=== PATIENT | male | born 1955 | race Caucasian/White ===

== ENCOUNTER 2017-06-10 14:38 | Inpatient (IN) | payer OTHER, BC ==
[~2017-06-10] VITALS: Ht 177.8 cm; Wt 78.9 kg
[2017-06-10 15:01] LABS: BASOPHIL (%) 0.6 % (0-1); EOSINOPHIL (%) 2.5 % (0-5); EOSINOPHIL COUNT 0.1 K/uL (0-0.3); HEMATOCRIT 31.1 % (38.0-50.0); HEMOGLOBIN 10.3 G/DL (12.5-16.6); IMMATURE GRANULOCYTE (%) 0.8 % (0.0-0.7); LYMPHOCYTE (%) 23.5 % (15-42); LYMPHOCYTE COUNT 1.1 K/uL (1.0-2.8); MCH 31.7 PG (29.0-34.0); MCHC 33.1 G/DL (30.0-36.0); MCV 95.7 FL (86-99); MONOCYTE (%) 8.1 % (3-12); MONOCYTE COUNT 0.4 K/uL (0-0.8); NEUTROPHIL (%) 64.5 % (45-76); PLATELET COUNT 293 K/uL (156-360); RBC DIS.WIDTH-CV 12.4 % (11.8-14.6); RBC DIS.WIDTH-SD 42.2 % (39-53); RED BLOOD COUNT 3.25 M/uL (4.00-5.50); WHITE BLOOD COUNT 4.7 K/uL (4.1-10.2)
[2017-06-10 15:13] LABS: AMYLASE 40 IU/L (1-118); CHLORIDE 108 mEq/L (99-109); SODIUM 140 mEq/L (136-147)
[2017-06-10 15:15] LABS: GLUCOSE 171 mg/dL (70-99)
[2017-06-10 15:18] LABS: SERUM ETHYL ALCOHOL < 10 mg/dL
[2017-06-10 15:19] LABS: CREATININE 1.2 mg/dL (0.6-1.3); GFR ESTIMATE (CALCULATED) > 59 mL/min/ (58.99-99999); UREA NITROGEN (BUN) 42 mg/dL (9-23)
[2017-06-10 15:21] LABS: LIPASE 13 U/L (1.0-51.0)
[2017-06-10] MEDS ORDERED: NOVOLOG PE100 UNITS/ SC (16:13)
[2017-06-10] MEDS ORDERED: LANTUS 3 M100 UNITS1 SC (16:13)
[2017-06-10] MEDS ORDERED: CELEXA10 MG PO (16:48)
[2017-06-10 17:16] LABS: TROP-I INTERPRETATION NEGATIVE; TROPONIN-I < 0.01 ng/mL (0.0-0.30)
[2017-06-10] MEDS ORDERED: PRESERVISION A1 EAC2 PO (19:51)
[2017-06-10] MEDS ORDERED: THERALITH XR T1 EACH PO (19:51)
[2017-06-10] MEDS ORDERED: ALLOPURINOL300 MG PO (19:52)
[2017-06-10] MEDS ORDERED: LIPITOR40 MG PO (19:52)
[2017-06-10] MEDS ORDERED: BENICAR40 MG PO (19:52)
[2017-06-10] MEDS ORDERED: ADULT ASPIRIN R81 MG PO (19:52)
[2017-06-10 20:40] LABS: TROP-I INTERPRETATION NEGATIVE; TROPONIN-I < 0.01 ng/mL (0.0-0.30)
[2017-06-11] VITALS (25 sets, daily range): BP systolic 132–178; BP diastolic 53–76
[2017-06-11 05:01] LABS: HEMATOCRIT 29.5 % (38.0-50.0); HEMOGLOBIN 9.6 G/DL (12.5-16.6); MCH 31.3 PG (29.0-34.0); MCHC 32.5 G/DL (30.0-36.0); MCV 96.1 FL (86-99); PLATELET COUNT 247 K/uL (156-360); RBC DIS.WIDTH-CV 12.5 % (11.8-14.6); RBC DIS.WIDTH-SD 42.6 % (39-53); RED BLOOD COUNT 3.07 M/uL (4.00-5.50); WHITE BLOOD COUNT 11.2 K/uL (4.1-10.2)
[2017-06-11 05:24] LABS: ALBUMIN 3.7 G/DL (3.2-4.8); ALKALINE PHOSPHATASE 53 IU/L (3-129); ALT (GPT) 24 IU/L (3-49); AST (GOT) 29 IU/L (2-34); CHLORIDE 105 MEQ/L (99-109); CREATININE 1.1 MG/DL (0.6-1.3); GFR ESTIMATE (CALCULATED) > 59 mL/min/ (58.99-99999); POTASSIUM 4.9 MEQ/L (3.7-5.4); SODIUM 140 MEQ/L (136-147); TOTAL BILIRUBIN 0.6 MG/DL (0.0-1.0); UREA NITROGEN (BUN) 34 mg/dL (9-23)
[2017-06-11 05:26] LABS: TROP-I INTERPRETATION NEGATIVE; TROPONIN-I < 0.01 ng/mL (0.0-0.30)
[2017-06-11 05:34] LABS: GLUCOSE 304 mg/dL (70-99)
[2017-06-11 06:42] LABS: APPEARANCE SL.HAZY ((CLEAR)); BILIRUBIN NEGATIVE; BLOOD NEGATIVE; COLOR YELLOW ((YELLOW)); GLUCOSE (STRIP) >=500; KETONES 5; LEUKOCYTES NEGATIVE; NITRITE NEGATIVE; PROTEIN (STRIP) 30; SPECIFIC GRAVITY 1.021 (1.000-1.030); UROBILINOGEN 0.2 MG/DL (0.2-1.0)
[2017-06-11 06:45] LABS: BACTERIA NONE SEEN /HPF; EPITHELIAL CELLS NONE SEEN /HPF; MUCUS TRACE /LPF; RED BLOOD CELLS 0-5 /HPF (0-5); UCUL ADDED? NO; WHITE BLOOD CELLS 0-5 /HPF (0-5)
[2017-06-11 07:09] LABS: BENZODIAZEPINES, URINE SCREEN Negative (200 ng/mL)
[2017-06-12] VITALS (24 sets, daily range): BP systolic 135–179; BP diastolic 54–102
[2017-06-13] VITALS (18 sets, daily range): BP systolic 124–170; BP diastolic 64–85
[2017-06-13 06:16] LABS: BASOPHIL (%) 0.2 % (0-1); EOSINOPHIL (%) 0.1 % (0-5); HEMATOCRIT 26.9 % (38.0-50.0); HEMOGLOBIN 8.8 G/DL (12.5-16.6); IMMATURE GRANULOCYTE (%) 0.4 % (0.0-0.7); LYMPHOCYTE (%) 8.1 % (15-42); LYMPHOCYTE COUNT 0.7 K/uL (1.0-2.8); MCH 31.9 PG (29.0-34.0); MCHC 32.7 G/DL (30.0-36.0); MCV 97.5 FL (86-99); MONOCYTE (%) 8.5 % (3-12); MONOCYTE COUNT 0.8 K/uL (0-0.8); NEUTROPHIL (%) 82.7 % (45-76); NEUTROPHIL COUNT 7.6 K/uL (1.8-6.4); RBC DIS.WIDTH-CV 12.8 % (11.8-14.6); RBC DIS.WIDTH-SD 45.1 % (39-53); RED BLOOD COUNT 2.76 M/uL (4.00-5.50); WHITE BLOOD COUNT 9.2 K/uL (4.1-10.2)
[2017-06-13 06:34] LABS: ALKALINE PHOSPHATASE 59 IU/L (3-129); ALT (GPT) 16 IU/L (3-49); AST (GOT) 14 IU/L (2-34); CHLORIDE 101 MEQ/L (99-109); CREATININE 0.7 MG/DL (0.6-1.3); GFR ESTIMATE (CALCULATED) > 59 mL/min/ (58.99-99999); GLUCOSE 262 mg/dL (70-99); POTASSIUM 4.2 MEQ/L (3.7-5.4); SODIUM 138 MEQ/L (136-147); TOTAL BILIRUBIN 0.9 MG/DL (0.0-1.0); UREA NITROGEN (BUN) 23 mg/dL (9-23)
[2017-06-13 06:39] LABS: PLAT.SUFFICIENCY ADEQUATE
[2017-06-13 06:40] LABS: PLATELET COUNT 171 K/uL (156-360)
[2017-06-14] VITALS (9 sets, daily range): BP systolic 144–184; BP diastolic 66–79
[2017-06-15] VITALS (7 sets, daily range): BP systolic 166–180; BP diastolic 68–86
[2017-06-16 04:20] VITALS: BP 162/84
[2017-06-16 09:33] VITALS: BP 162/77
[2017-06-16 12:20] VITALS: BP 166/83
[2017-06-16] MEDS ORDERED: NORVASC5 MG PO (17:54)
== END 2017-06-16 16:33 | DRG 965 ==
LOC: TRA 14:38 → 4EAST 21:49 → EDOF 21:49 → 4WEST 21:49 → ENRESERV 21:50 → 4WEST 06-11 01:27 → ENRESERV 06-13 23:35 → 4EAST 06-14 01:13 → ENPENDDIS 06-16 → 4EAST 06-16 16:33
PROVIDERS: Emergency Medicine; Obstetrics & Gynecology; Specialist; Student in an Organized Health Care Education/Training Program
DX: S06.5X9A Traumatic subdural hemorrhage with loss of consciousness of unspecified duration, initial encounter (principal); S27.2XXA Traumatic hemopneumothorax, initial encounter; S27.329A Contusion of lung, unspecified, initial encounter; S22.5XXA Flail chest, initial encounter for closed fracture; S06.2X9A Diffuse traumatic brain injury with loss of consciousness of unspecified duration, initial encounter; S02.91XA Unspecified fracture of skull, initial encounter for closed fracture; S42.002A Fracture of unspecified part of left clavicle, initial encounter for closed fracture; S42.023A Displaced fracture of shaft of unspecified clavicle, initial encounter for closed fracture; S60.812A Abrasion of left wrist, initial encounter; W10.9XXA Fall (on) (from) unspecified stairs and steps, initial encounter; J44.9 Chronic obstructive pulmonary disease, unspecified; I25.10 Atherosclerotic heart disease of native coronary artery without angina pectoris; E11.9 Type 2 diabetes mellitus without complications; I10 Essential (primary) hypertension; E78.5 Hyperlipidemia, unspecified; I27.20 Pulmonary hypertension, unspecified; R29.810 Facial weakness; Z79.899 Other long term (current) drug therapy; Z79.4 Long term (current) use of insulin; Z82.49 Family history of ischemic heart disease and other diseases of the circulatory system; Z83.3 Family history of diabetes mellitus; Z82.5 Family history of asthma and other chronic lower respiratory diseases
CPT/HCPCS: 70450; 71045; 71046; 71260; 72125; 72129; 72132; 72170; 74177; 80048; 80053; 80306 90; 81003; 82150; 82948; 83690; 84484; 85025; 85027; 86850; 86900; 86901; 87641; 92523 GN; 93005; 93306; 93880; 94799; 97530 GP; 99281; 99285; G0480; G0515 GN; J0360; J1170; J1815; J2270; J2405; J2765; J7040; J7050; J7120; S0028

== ENCOUNTER 2017-06-16 13:31 | Inpatient (IN) | payer BC ==
[~2017-06-16] VITALS: Ht 177.8 cm; Wt 78.5 kg
[~2017-06-16 13:31] MED LIST: ADULT ASPIRIN R81 MG PO; ALLOPURINOL300 MG PO; BENICAR40 MG PO; CELEXA10 MG PO; LANTUS 3 M100 UNITS1 SC; LIPITOR40 MG PO; NOVOLOG PE100 UNITS/ SC; PRESERVISION A1 EAC2 PO; THERALITH XR T1 EACH PO
[2017-06-16 17:17] VITALS: BP 190/88
[2017-06-16] MEDS ORDERED: NORVASC5 MG PO (17:54)
[2017-06-16 20:57] VITALS: BP 192/86
[2017-06-17] VITALS (7 sets, daily range): BP systolic 152–195; BP diastolic 68–85
[2017-06-17 09:47] LABS: HEMOGLOBIN 9.8 G/DL (12.5-16.6); MCH 31.6 PG (29.0-34.0); PLATELET COUNT 221 K/uL (156-360); RBC DIS.WIDTH-CV 12.1 % (11.8-14.6); RBC DIS.WIDTH-SD 39.5 % (39-53); WHITE BLOOD COUNT 9.4 K/uL (4.1-10.2)
[2017-06-17 09:52] LABS: MCV 90.3 FL (86-99)
[2017-06-17 10:24] LABS: ALBUMIN 2.9 G/DL (3.2-4.8); ALKALINE PHOSPHATASE 66 IU/L (3-129); ALT (GPT) 18 IU/L (3-49); AST (GOT) 18 IU/L (2-34); CHLORIDE 89 MEQ/L (99-109); CREATININE 0.9 MG/DL (0.6-1.3); GFR ESTIMATE (CALCULATED) > 59 mL/min/ (58.99-99999); GLUCOSE 388 mg/dL (70-99); POTASSIUM 3.5 MEQ/L (3.7-5.4); SODIUM 128 MEQ/L (136-147); TOTAL PROTEIN 5.5 G/DL (6.4-8.3); UREA NITROGEN (BUN) 26 mg/dL (9-23)
[2017-06-17 14:00] LABS: HEMOGLOBIN A1c (GLYCOHEMOGLOB) 6.9 % (Below 5.7)
[2017-06-17 15:07] LABS: CHLORIDE 89 MEQ/L (99-109); CREATININE 0.9 MG/DL (0.6-1.3); GFR ESTIMATE (CALCULATED) > 59 mL/min/ (58.99-99999); POTASSIUM 3.5 MEQ/L (3.7-5.4); SODIUM 129 MEQ/L (136-147); UREA NITROGEN (BUN) 26 mg/dL (9-23)
[2017-06-17 15:08] LABS: GLUCOSE 159 mg/dL (70-99)
[2017-06-17 20:39] LABS: ALBUMIN 3.2 G/DL (3.2-4.8); ALKALINE PHOSPHATASE 65 IU/L (3-129); ALT (GPT) 18 IU/L (3-49); AST (GOT) 20 IU/L (2-34); DIRECT BILIRUBIN 0.2 mg/dL (0.0-0.3); TOTAL BILIRUBIN 0.8 MG/DL (0.0-1.0)
[2017-06-18 01:29] VITALS: BP 158/71
[2017-06-18 05:21] VITALS: BP 135/62
[2017-06-18 06:24] LABS: BASOPHIL (%) 0.1 % (0-1); EOSINOPHIL (%) 0.3 % (0-5); HEMATOCRIT 25.1 % (38.0-50.0); HEMOGLOBIN 8.6 G/DL (12.5-16.6); IMMATURE GRANULOCYTE (%) 0.4 % (0.0-0.7); LYMPHOCYTE (%) 6.1 % (15-42); LYMPHOCYTE COUNT 0.6 K/uL (1.0-2.8); MCHC 34.3 G/DL (30.0-36.0); MCV 90.6 FL (86-99); MONOCYTE (%) 8.9 % (3-12); MONOCYTE COUNT 0.9 K/uL (0-0.8); NEUTROPHIL (%) 84.2 % (45-76); NEUTROPHIL COUNT 8.2 K/uL (1.8-6.4); PLATELET COUNT 224 K/uL (156-360); RBC DIS.WIDTH-CV 12.4 % (11.8-14.6); RBC DIS.WIDTH-SD 40.4 % (39-53); RED BLOOD COUNT 2.77 M/uL (4.00-5.50); WHITE BLOOD COUNT 9.8 K/uL (4.1-10.2)
[2017-06-18 07:30] VITALS: BP 183/81
[2017-06-18 08:20] LABS: CHLORIDE 92 MEQ/L (99-109); CREATININE 0.9 MG/DL (0.6-1.3); GFR ESTIMATE (CALCULATED) > 59 mL/min/ (58.99-99999); SODIUM 128 MEQ/L (136-147); THYROTROPIN (TSH) 1.5 MIU/L (0.4-5.5); UREA NITROGEN (BUN) 27 mg/dL (9-23); URIC ACID 2.9 mg/dL (3.1-9.2)
[2017-06-18 08:24] LABS: GLUCOSE 392 mg/dL (70-99); POTASSIUM 4.3 MEQ/L (3.7-5.4)
[2017-06-18 09:00] VITALS: BP 134/62
[2017-06-18 10:20] LABS: HEPATITIS C ANTIBODY Nonreactive
[2017-06-18 12:20] LABS: APPEARANCE SL.HAZY ((CLEAR)); BILIRUBIN NEGATIVE; BLOOD NEGATIVE; COLOR YELLOW ((YELLOW)); GLUCOSE (STRIP) >=500; KETONES 20; LEUKOCYTES NEGATIVE; NITRITE NEGATIVE; PROTEIN (STRIP) 30; SPECIFIC GRAVITY 1.014 (1.000-1.030); UROBILINOGEN 0.2 MG/DL (0.2-1.0)
[2017-06-18 12:30] LABS: BACTERIA RARE /HPF; EPITHELIAL CELLS NONE SEEN /HPF; MUCUS NONE SEEN /LPF; RED BLOOD CELLS 0-5 /HPF (0-5); UCUL ADDED? NO; WHITE BLOOD CELLS 0-5 /HPF (0-5)
[2017-06-18 15:02] VITALS: BP 124/58
[2017-06-18 18:45] LABS: INTER. NORMALIZED RATIO 1.4
[2017-06-18 18:46] LABS: TROP-I INTERPRETATION NEGATIVE; TROPONIN-I < 0.01 ng/mL (0.0-0.30)
[2017-06-18 18:48] LABS: PTT 24.7 SEC (25-37)
== END 2017-06-18 19:02 | DRG 945 ==
LOC: 3WEST 13:31 → ENRESERV 06-18 18:02 → CANRESERV 06-18 18:02 → 3WEST 06-18 19:02
PROVIDERS: Hospitalist; Internal Medicine; Internal Medicine Nephrology; Internal Medicine Pulmonary Disease; Physical Medicine & Rehabilitation Pain Medicine; Physician Assistant Medical
PROC: F07M0ZZ Range of Motion and Joint Mobility Treatment of Musculoskeletal System - Whole Body (ICD-10-PCS; principal; 2017-06-16)
DX: S06.5X9D Traumatic subdural hemorrhage with loss of consciousness of unspecified duration, subsequent encounter (principal); S06.6X9D Traumatic subarachnoid hemorrhage with loss of consciousness of unspecified duration, subsequent encounter; S02.0XXD Fracture of vault of skull, subsequent encounter for fracture with routine healing; S22.42XD Multiple fractures of ribs, left side, subsequent encounter for fracture with routine healing; S27.0XXD Traumatic pneumothorax, subsequent encounter; S27.321D Contusion of lung, unilateral, subsequent encounter; S42.002D Fracture of unspecified part of left clavicle, subsequent encounter for fracture with routine healing; W10.9XXD Fall (on) (from) unspecified stairs and steps, subsequent encounter; R26.9 Unspecified abnormalities of gait and mobility; E10.65 Type 1 diabetes mellitus with hyperglycemia; E88.09 Other disorders of plasma-protein metabolism, not elsewhere classified; E83.51 Hypocalcemia; E87.1 Hypo-osmolality and hyponatremia; E87.6 Hypokalemia; H91.90 Unspecified hearing loss, unspecified ear; E77.8 Other disorders of glycoprotein metabolism; I10 Essential (primary) hypertension; D64.9 Anemia, unspecified; I25.10 Atherosclerotic heart disease of native coronary artery without angina pectoris; J44.9 Chronic obstructive pulmonary disease, unspecified; M47.814 Spondylosis without myelopathy or radiculopathy, thoracic region; E78.5 Hyperlipidemia, unspecified; M51.36 Other intervertebral disc degeneration, lumbar region; R33.9 Retention of urine, unspecified; R41.89 Other symptoms and signs involving cognitive functions and awareness
CPT/HCPCS: 70450; 71045; 80048; 80048 91; 80053; 80076; 81003; 82533 91; 82948; 83036; 83605; 83930; 83935; 84100; 84300; 84443; 84484; 84550; 85025; 85027; 85610; 85730; 86803; 87040; 92523 GN; 93005; 97530 GP; A6214; G0515 GN; G0515 GO; J1815; J1956; J3370

== ENCOUNTER 2017-06-18 17:50 | Observation (INO) | payer BC ==
[~2017-06-18] VITALS: Ht 177.8 cm; Wt 82.2 kg
[~2017-06-18 17:50] MED LIST changes: +NORVASC5 MG PO
[2017-06-18 20:00] VITALS: BP 158/74
[2017-06-19] VITALS (8 sets, daily range): BP systolic 102–150; BP diastolic 49–71
[2017-06-19 06:10] LABS: BASOPHIL (%) 0.1 % (0-1); EOSINOPHIL (%) 0.4 % (0-5); HEMATOCRIT 25.4 % (38.0-50.0); HEMOGLOBIN 8.7 G/DL (12.5-16.6); IMMATURE GRANULOCYTE (%) 0.4 % (0.0-0.7); LYMPHOCYTE COUNT 0.7 K/uL (1.0-2.8); MCH 31.4 PG (29.0-34.0); MCHC 34.3 G/DL (30.0-36.0); MCV 91.7 FL (86-99); MONOCYTE (%) 7.7 % (3-12); MONOCYTE COUNT 0.8 K/uL (0-0.8); NEUTROPHIL (%) 84.4 % (45-76); NEUTROPHIL COUNT 8.5 K/uL (1.8-6.4); PLATELET COUNT 252 K/uL (156-360); RBC DIS.WIDTH-CV 12.6 % (11.8-14.6); RBC DIS.WIDTH-SD 42.4 % (39-53); RED BLOOD COUNT 2.77 M/uL (4.00-5.50)
[2017-06-19 06:41] LABS: ALBUMIN 2.7 G/DL (3.2-4.8); ALKALINE PHOSPHATASE 59 IU/L (3-129); ALT (GPT) 18 IU/L (3-49); AST (GOT) 16 IU/L (2-34); CHLORIDE 94 MEQ/L (99-109); DIRECT BILIRUBIN 0.2 mg/dL (0.0-0.3); GFR ESTIMATE (CALCULATED) > 59 mL/min/ (58.99-99999); GLUCOSE 355 mg/dL (70-99); POTASSIUM 4.1 MEQ/L (3.7-5.4); SODIUM 130 MEQ/L (136-147); TOTAL BILIRUBIN 0.8 MG/DL (0.0-1.0); UREA NITROGEN (BUN) 33 mg/dL (9-23)
[2017-06-19 06:49] LABS: TOTAL PROTEIN 4.8 G/DL (6.4-8.3)
[2017-06-19 09:47] LABS: GLUCOSE 466 mg/dL (70-99)
[2017-06-19 12:29] LABS: GLUCOSE 461 mg/dL (70-99)
[2017-06-20] VITALS (7 sets, daily range): BP systolic 118–160; BP diastolic 58–70
[2017-06-20 06:58] LABS: BASOPHIL (%) 0.1 % (0-1); EOSINOPHIL (%) 0.8 % (0-5); EOSINOPHIL COUNT 0.1 K/uL (0-0.3); HEMATOCRIT 25.1 % (38.0-50.0); HEMOGLOBIN 8.7 G/DL (12.5-16.6); IMMATURE GRANULOCYTE (%) 0.3 % (0.0-0.7); LYMPHOCYTE (%) 12.5 % (15-42); LYMPHOCYTE COUNT 1.1 K/uL (1.0-2.8); MCH 31.5 PG (29.0-34.0); MCHC 34.7 G/DL (30.0-36.0); MCV 90.9 FL (86-99); MONOCYTE COUNT 0.8 K/uL (0-0.8); NEUTROPHIL (%) 77.3 % (45-76); NEUTROPHIL COUNT 6.6 K/uL (1.8-6.4); PLATELET COUNT 273 K/uL (156-360); RBC DIS.WIDTH-CV 12.5 % (11.8-14.6); RED BLOOD COUNT 2.76 M/uL (4.00-5.50); WHITE BLOOD COUNT 8.6 K/uL (4.1-10.2)
[2017-06-20 07:29] LABS: CHLORIDE 96 MEQ/L (99-109); GFR ESTIMATE (CALCULATED) > 59 mL/min/ (58.99-99999); GLUCOSE 142 mg/dL (70-99); POTASSIUM 3.6 MEQ/L (3.7-5.4); SODIUM 134 MEQ/L (136-147); UREA NITROGEN (BUN) 36 mg/dL (9-23)
[2017-06-21 00:02] VITALS: BP 132/69
[2017-06-21 03:18] VITALS: BP 124/56
[2017-06-21 05:02] LABS: HEMATOCRIT 25.1 % (38.0-50.0); HEMOGLOBIN 8.9 G/DL (12.5-16.6); MCH 32.1 PG (29.0-34.0); MCHC 35.5 G/DL (30.0-36.0); MCV 90.6 FL (86-99); PLATELET COUNT 301 K/uL (156-360); RBC DIS.WIDTH-CV 12.4 % (11.8-14.6); RED BLOOD COUNT 2.77 M/uL (4.00-5.50); WHITE BLOOD COUNT 9.1 K/uL (4.1-10.2)
[2017-06-21 05:17] LABS: CHLORIDE 96 mEq/L (99-109); GLUCOSE 119 mg/dL (70-99); POTASSIUM 3.6 mEq/L (3.7-5.4); SODIUM 132 mEq/L (136-147)
[2017-06-21 05:18] LABS: GLUCOSE 119 mg/dL (70-99)
[2017-06-21 05:22] LABS: CREATININE 1.1 mg/dL (0.6-1.3); GFR ESTIMATE (CALCULATED) > 59 mL/min/ (58.99-99999)
[2017-06-21 05:23] LABS: UREA NITROGEN (BUN) 40 mg/dL (9-23)
[2017-06-21 08:19] VITALS: BP 122/59
[2017-06-21 11:22] LABS: APPEARANCE SL.HAZY ((CLEAR)); BILIRUBIN NEGATIVE; BLOOD MODERATE; COLOR YELLOW ((YELLOW)); GLUCOSE (STRIP) NEGATIVE; KETONES NEGATIVE; LEUKOCYTES NEGATIVE; NITRITE NEGATIVE; PROTEIN (STRIP) NEGATIVE; SPECIFIC GRAVITY 1.013 (1.000-1.030); UROBILINOGEN 0.2 MG/DL (0.2-1.0)
[2017-06-21 11:28] LABS: BACTERIA RARE /HPF; EPITHELIAL CELLS NONE SEEN /HPF; MUCUS TRACE /LPF; WHITE BLOOD CELLS 0-5 /HPF (0-5)
[2017-06-21 11:54] VITALS: BP 127/74
[2017-06-21 12:05] LABS: C DIFF TOXIN NEGATIVE (NEGATIVE)
[2017-06-21 16:10] VITALS: BP 133/74
[2017-06-21 19:43] VITALS: BP 129/66
[2017-06-22 00:36] VITALS: BP 129/61
[2017-06-22 03:53] VITALS: BP 124/62
[2017-06-22 07:43] VITALS: BP 130/61
[2017-06-22 09:33] LABS: HEMATOCRIT 27.2 % (38.0-50.0); HEMOGLOBIN 9.3 G/DL (12.5-16.6); MCH 31.5 PG (29.0-34.0); MCHC 34.2 G/DL (30.0-36.0); MCV 92.2 FL (86-99); PLATELET COUNT 330 K/uL (156-360); RBC DIS.WIDTH-CV 12.4 % (11.8-14.6); RED BLOOD COUNT 2.95 M/uL (4.00-5.50); WHITE BLOOD COUNT 7.4 K/uL (4.1-10.2)
[2017-06-22 10:07] LABS: CHLORIDE 96 MEQ/L (99-109); CREATININE 0.9 MG/DL (0.6-1.3); GFR ESTIMATE (CALCULATED) > 59 mL/min/ (58.99-99999); POTASSIUM 4.1 MEQ/L (3.7-5.4); SODIUM 132 MEQ/L (136-147); UREA NITROGEN (BUN) 33 mg/dL (9-23)
[2017-06-22 10:28] LABS: GLUCOSE 293 mg/dL (70-99)
[2017-06-22 12:12] VITALS: BP 151/87
[2017-06-22 15:50] LABS: BASE EXCESS 4.7 mEq/L (-3 to +3); BICARBONATE 27.9 mEq/L (22-26); CARBOXY HGB 1.7 % (0-5); METHEMOGLOBIN 1.5 % (0-1.5); PCO2 35 mm Hg (35-45); PO2 71 mm Hg (80-100); pH 7.51 (7.35-7.45)
[2017-06-22 15:51] LABS: COMMENTS - BLOOD GASES A+C+; FI02 0.21 %; SITE RR; TOTAL RESP RATE 7 resp/min
[2017-06-22 15:59] VITALS: BP 149/87
[2017-06-22 19:53] VITALS: BP 155/72
[2017-06-23 01:25] VITALS: BP 140/71
[2017-06-23 04:17] VITALS: BP 143/67
[2017-06-23 05:38] LABS: BASOPHIL (%) 0 % (0-1); EOSINOPHIL COUNT 0.1 K/uL (0-0.3); HEMATOCRIT 26.9 % (38.0-50.0); HEMOGLOBIN 9.3 G/DL (12.5-16.6); IMMATURE GRANULOCYTE (%) 0.4 % (0.0-0.7); LYMPHOCYTE (%) 8.3 % (15-42); LYMPHOCYTE COUNT 0.7 K/uL (1.0-2.8); MCH 31.8 PG (29.0-34.0); MCHC 34.6 G/DL (30.0-36.0); MCV 92.1 FL (86-99); MONOCYTE (%) 6.3 % (3-12); MONOCYTE COUNT 0.6 K/uL (0-0.8); NEUTROPHIL COUNT 7.5 K/uL (1.8-6.4); PLATELET COUNT 381 K/uL (156-360); RBC DIS.WIDTH-CV 12.4 % (11.8-14.6); RBC DIS.WIDTH-SD 41.6 % (39-53); RED BLOOD COUNT 2.92 M/uL (4.00-5.50)
[2017-06-23 05:58] LABS: CHLORIDE 98 MEQ/L (99-109); CREATININE 0.8 MG/DL (0.6-1.3); GFR ESTIMATE (CALCULATED) > 59 mL/min/ (58.99-99999); POTASSIUM 3.9 MEQ/L (3.7-5.4); SODIUM 134 MEQ/L (136-147); UREA NITROGEN (BUN) 29 mg/dL (9-23)
[2017-06-23 06:00] LABS: GLUCOSE 99 mg/dL (70-99)
[2017-06-23 08:01] VITALS: BP 152/72
[2017-06-23] MEDS ORDERED: TAMSULOSIN HCL0.4 MG PO (13:43)
[2017-06-23] MEDS ORDERED: LOSARTAN POTAS100 MG PO (13:43)
[2017-06-23] MEDS ORDERED: NIFEDIPINE ER60 MG PO (13:43)
== END 2017-06-23 16:10 ==
LOC: CANRESERV 17:50 → 5WEST 17:50 → ENRESERV 17:50 → 5WEST 19:50
PROVIDERS: Hospitalist; Internal Medicine; Nurse Practitioner Family; Physician Assistant
DX: R55 Syncope and collapse (principal); E87.1 Hypo-osmolality and hyponatremia; S06.1X9D Traumatic cerebral edema with loss of consciousness of unspecified duration, subsequent encounter; S06.5X9D Traumatic subdural hemorrhage with loss of consciousness of unspecified duration, subsequent encounter; S22.42XD Multiple fractures of ribs, left side, subsequent encounter for fracture with routine healing; S27.0XXD Traumatic pneumothorax, subsequent encounter; S27.329D Contusion of lung, unspecified, subsequent encounter; S02.91XD Unspecified fracture of skull, subsequent encounter for fracture with routine healing; W10.9XXD Fall (on) (from) unspecified stairs and steps, subsequent encounter; S42.002D Fracture of unspecified part of left clavicle, subsequent encounter for fracture with routine healing; E11.9 Type 2 diabetes mellitus without complications; I10 Essential (primary) hypertension; R33.9 Retention of urine, unspecified; H91.90 Unspecified hearing loss, unspecified ear; F32.9 Major depressive disorder, single episode, unspecified; E78.5 Hyperlipidemia, unspecified; F07.81 Postconcussional syndrome; M10.9 Gout, unspecified; R32 Unspecified urinary incontinence; R56.9 Unspecified convulsions; Z79.4 Long term (current) use of insulin; Z88.0 Allergy status to penicillin
CPT/HCPCS: 36600; 70450; 70551; 71045; 71046; 80048; 80076; 80202; 81003; 82140; 82803; 82948; 83735; 84999; 85025; 85027; 87493; 93971; 95819; 95956; 97530 GO; 97530 GP; G0378; G8978 GP CM; G8979 GP CK; G8980 GP CM; G8987 GO CN; G8988 GO CK; G8989 GO CL; J1815; J1885; J1956; J3370; J7040